=== PATIENT | female | born 1980 | race Caucasian/White ===

== ENCOUNTER 2016-06-07 09:57 | Emergency (ER) | payer OTHER ==
--- OUTSIDE RECORDS SUMMARY | 2016-06-07 10:12 | XMS REPORT | Continuity of Care Document ---
:1980 Author Organization [facility] ([facility]) Address [address] [place] [address] Phone [phone] Care Team Providers Name Role Phone Alyse Downing Primary Care Provider [phone] Source Comments This disclosure is being made pursuant to the Care Everywhere program, applicable federal and state laws, and may not contain all informaitonavailable regarding this patient.[facility] ([facility]) Active Allergies and Adverse Reactions No Active Allergies Current Medications Prescription Sig. Disp. Refills Start Date End Date Status ibuprofen (MOTRIN) 800 take 800 mg by Active mg tablet mouth 2 times daily. cyclobenzaprine take 10 mg by mouth Active (FLEXERIL) 10 mg tablet daily. HYDROcodone-acetaminophe Take 1-2 Tabs by 20 Tab 0 04/27/2010 Active n (VICODIN) 5-500 mg per mouth every 4 hours tablet as needed for Pain. Indications: Pain ibuprofen (MOTRIN) 800 Take 1 Tab by mouth 25 Tab 0 04/27/2010 Active mg tablet every 6 hours as needed for Pain. Indications: Pain HYDROcodone-acetaminophe Take 1-2 Tabs by 35 Tab 0 06/01/2010 Active n (LORTAB) 5-500 mg per mouth. Every 4-6 tablet hrs PRN maximum 8 tabs/24 hours. Indications: Pain ibuprofen (MOTRIN) 800 Take 1 Tab by mouth 25 Tab 0 06/01/2010 Active mg tablet every 6 hours as needed. maximum 4 tabs/24 hours Indications: Pain chlorhexidine (PERIDEX) Take 10-15 mL by 473 mL 2 06/01/2010 Active 0.12 % oral rinse mouth 2 times daily. Swish and spit NPO 1/2 hour. Indications: Mouth Infection Prevention amoxicillin (AMOXIL) 500 Take 1 Cap by mouth 21 Cap 0 06/01/2010 Active mg capsule 3 times daily. 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 Pulse 91 06/01/2010 2:49 PM PRACTICE ARCHITECT Temperature - - Respiratory Rate - - Height - - Weight 89.998 kg (198 lb 6.6 oz) 08/11/2006 11:45 AM CDT Body Mass Index - - Oxygen Saturation 97% 06/01/2010 2:49 PM PRACTICE ARCHITECT Plan of Care Health Maintenance Due Date Last Done Comments Hepatitis B Vaccine (1 of 3 1978 - Primary Series) Tdap Vaccine 1989 Lipid Disorder Screening 1996 MMR Vaccine 1996 Td Vaccine 1996 Cervical Cancer Screening 08/11/2009 08/11/2006, Additional history exists 02/26/2006, 02/26/2006 Influenza Vaccine: Seasonal 10/30/2015 (#1) Results from Last 3 Months Not on file
[2016-06-07] MEDS ORDERED: KETOROLAC TROMETHAMINE 60 MG/2 ML VIAL IM ONE ×2 (10:15→10:25)
--- NOTE | 2016-06-07 10:37 | ERNOTE ---
Upper Extremity HPI - Narrative Date of Service: 06/07/16 - General Extremities Pain Location: arm: left, forearm: left, wrist: left Time Seen by Provider: 06/07/16 10:04 Source: patient Exam Limitations: no limitations - Immun/Allergies/Home Medications Immunizations: IMMUNIZATION HX Immunizations Up to Date Yes History of Influenza Vaccine No Hx Pneumococcal Vaccination No Allergies/Adverse Reactions: Allergies Allergy/AdvReac Type Severity Reaction Status Date / Time No Known Allergies Allergy Verified 06/07/16 10:05 Home Medications: HOME MEDICATIONS ALPRAZolam [Xanax] 0.25 mg PO TID PRN #30 tab 11/27/15 [Last Taken Unknown] Sertraline HCl [Zoloft] 25 mg PO DAILY #30 tablet 11/27/15 [Last Taken Unknown] Hydrocodone/Acetaminophen [Hydrocodon-Acetaminoph 7.5-325] 1 each PO TID PRN # 10 tablet 06/07/16 [Last Taken Unknown] - History of Present Illness Narrative: 36-year-old female presenting to the emergency room after a fall at home. States she was walking out of the bathroom when she fell landing backwards putting out her left hand to catch herself and landed on it. Patient states she has pain in her left hand last left wrist and left arm. Patient also states that she has had surgery to that wrist with pinning. Date (Duration): 06/07/16 Occurred: just prior to arrival Location of Incident: home Severity: moderate Method of Injury: Reports: fell Reason for Fall: Reports: slipped Loss of Consciousness: Reports: no loss of consciousness Modifying Factors - (Improves): Reports: immobilization Modifying Factors - (Worsens): Reports: movement Associated Symptoms: Reports: weakness. Denies: tingling, numbness distally, loss of feeling - decreased ROM Other Injuries: Reports: none Review of Systems - Review of Systems Constitutional: Present: no symptoms reported EYE: Present: no symptoms reported ENT: Present: no symptoms reported Respiratory: Present: no symptoms reported Cardiology: Present: no symptoms reported Gastrointestinal/Abdominal: Present: no symptoms reported Genitourinary: Present: no symptoms reported Musculoskeletal: Present: See HPI, joint pain. Absent: joint swelling Skin: Present: no symptoms reported Neurological: Present: no symptoms reported Endocrine: Present: no symptoms reported Hematologic/Lymphatic: Present: no symptoms reported Psych: Present: no symptoms reported - Patient's Past Medical History Patient History - Medical: Anxiety, Seizures Patient History - Cardiac/Respiratory: No pertinent hx Patient History - Cancer: No Hx of Cancer Patient History - Surgical Procedures: Hysterectomy, Tubal Ligation, Other Additional Info: States she has had pins put in her left wrist Patient History - Other: None - Family History Mother Family History - Medical: , Diabetes Type 2 Family History - Cardiac/Respiratory: Coronary Heart Disease, CVA/Stroke Father Family History - Medical: Diabetes Type 2 Family History - Cardiac/Respiratory: Coronary Heart Disease, CVA/Stroke Grandmother-Maternal Family History - Medical: , No pertinent hx Family History - Cardiac/Respiratory: No pertinent hx Grandmother-Paternal Family History - Medical: , No pertinent hx Family History - Cardiac/Respiratory: Coronary Heart Disease Uncle Family History - Medical: Diabetes Type 2 Family History - Cardiac/Respiratory: Coronary Heart Disease - Social History Living Situations: home Abuse History: No History of abuse Psych History: Current tx/ever been on anti-depressants or anti-anxiety meds Alcohol Use: none Drug Use: none - Immunizations Immunizations Up to Date: Yes Hx Pneumococcal Vaccination: No History of Influenza Vaccine: No Physical Exam - Physical Exam General Appearance: Present: wd/wn, mild distress Eye Exam: Normal inspection: bilateral Ears, Nose, Throat: Present: normal ENT inspection Neck: Present: normal inspection Respiratory: Present: no respiratory distress Cardiovascular/Chest: Present: regular rate, rhythm Gastrointestinal/Abdominal: Present: normal bowel sounds Back Exam: Present: normal inspection Extremity Exam: Present: normal except -, decreased range of motion - left arm/ wrist. Absent: joint redness, joint swelling, extremity edema Neurological Exam: Present: alert, oriented Skin Exam: Present: normal color Lymphatic Exam: Present: no adenopathy ED Progress - Vital Signs Patient's Vital Signs:: I have reviewed the patient's vital signs. Vital Signs: Vital Signs 06/07/16 10:01 Temperature 36.3 C L Pulse Rate 89 Respiratory 12 Rate Blood Pressure 129/81 O2 Sat by Pulse 97 Oximetry - X-Ray X-Ray #1 X-Ray: wrist Interpretation: Reviewed by me X-ray Comments: No definable fracture lucency or cortical discontinuity. Likely an old fracture deformity of the distal radial metaphysis, grossly stable. There is a well-corticated ossific fragment seen distal to the ulna, also stable suggestive of an old fracture. Joint spaces are in gross normal alignment without subluxation or dislocation. Mild soft tissue swelling noted throughout the wrist. IMPRESSION: 1. No acute osseous finding. 2. Stable sequela of likely previous injury of the distal radius and ulna. 3. Soft tissue swelling as above. Electronically signed by Rebeca Sunshine M.D.. X-Ray #2 X-Ray: forearm Interpretation: Reviewed by me X-ray Comments: Forearm 2 View LT * No definable fracture lucency or cortical discontinuity. Joint spaces are grossly unremarkable, as visualized. On the lateral image of the forearm there is slight elevation of the anterior fat pad at the left elbow. Mild soft tissue prominence noted at the dorsal aspect of the mid to proximal forearm. IMPRESSION: 1. No definite acute fracture suggested. 2. Elevation of the anterior fat pad at the left elbow. Correlate clinically for pain/injury to the elbow. Consider dedicated images of the left elbow. Electronically signed by Rebeca Sunshine M.D.. X-Ray #3 X-Ray: elbow Interpretation: Reviewed by me X-ray Comments: Elbow Complete Min 3 View LT * No definable fracture lucency or cortical discontinuity. Joint spaces are in gross normal alignment without subluxation or dislocation. No significant elevation of the anterior fat pad. Soft tissues are grossly normal. IMPRESSION: No acute findings. Electronically signed by Rebeca Sunshine M.D.. X-Ray #4 X-Ray: shoulder Interpretation: Reviewed by wi X-ray Comments: Shoulder 3 or More Views LT * No definable fracture lucency or cortical discontinuity. Joint spaces are in gross normal alignment without subluxation or dislocation. Minimal prominence (4.6 mm) of the acromioclavicular joint could represent acromioclavicular joint separation. Soft tissues are grossly normal. Visualized portions of the chest grossly unremarkable. IMPRESSION: 1. No definable fracture or dislocation. 2. Minimal widening of the acromioclavicular joint. Consider acromioclavicular joint separation. Electronically signed by Rebeca Sunshine M.D.. 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 Negative for narcotic abuse at this time. Departure Clinical Impression: Acromioclavicular (AC) joint injury Qualifiers: Encounter type: initial encounter Laterality: left Qualified Code(s): S49.92XA - Unspecified injury of left shoulder and upper arm, initial encounter - Departure Disposition: Home Follow Up Needed Condition: Stable Instructions: Acromioclavicular Separation With [facility] Additional Instructions: continue to take her home medications and when necessary pain medications as needed. Follow up with her primary care physician within the next 3 days. Return to the ER if symptoms worsen or have any numbness tingling or discoloration of the left arm. Referrals: Les Aguayo DO [Primary Care Provider] - Prescriptions: Hydrocodone/Acetaminophen [Hydrocodon-Acetaminoph 7.5-325] 1 each PO TID PRN # 10 tablet PRN Reason: Pain
[2016-06-07 11:51] VITALS: BP 132/81
== END 2016-06-07 12:20 | disposition home or self-care (01) ==
LOC: ER 09:57
DX: S49.92XA Unspecified injury of left shoulder and upper arm, initial encounter (principal); F41.9 Anxiety disorder, unspecified; W01.0XXA Fall on same level from slipping, tripping and stumbling without subsequent striking against object, initial encounter; Y92.002 Bathroom of unspecified non-institutional (private) residence as the place of occurrence of the external cause

== ENCOUNTER 2016-07-23 09:23 | Emergency (ER) | payer OTHER ==
[2016-07-23] MEDS ORDERED: KETOROLAC TROMETHAMINE 60 MG/2 ML VIAL IM ONE ×2 (10:08→10:12)
--- NOTE | 2016-07-23 10:13 | ERNOTE ---
Upper Extremity HPI - Narrative Date of Service: 07/23/16 - General Extremities Pain Location: shoulder: left, other: left - scapula Time Seen by Provider: 07/23/16 10:03 Source: patient, family, RN notes reviewed Exam Limitations: no limitations - Immun/Allergies/Home Medications Immunizations: IMMUNIZATION HX Immunizations Up to Date Yes History of Influenza Vaccine No Hx Pneumococcal Vaccination No Allergies/Adverse Reactions: Allergies Allergy/AdvReac Type Severity Reaction Status Date / Time No Known Allergies Allergy Verified 07/23/16 09:30 Home Medications: HOME MEDICATIONS ALPRAZolam [Xanax] 0.25 mg PO TID PRN #30 tab 11/27/15 [Last Taken Unknown] Sertraline HCl [Zoloft] 25 mg PO DAILY #30 tablet 11/27/15 [Last Taken Unknown] oxyCODONE HCL/ACETAMINOPHEN [Oxycodone-Acetaminophen 5-325] 1 each PO Q6H PRN # 12 tablet 07/23/16 [Last Taken Unknown] - History of Present Illness Narrative: 36 y/o female ambulatory to the ED for pain in the left posterior shoulder/ scapula region. She was reaching overhead while working on her ceiling fan when she heard a "pop" last evening. This was followed by immediate pain. She has not taken anything for pain. She fell last month and injured the shoulder. She began having scapula pain at that time as well. Her shoulder xray showed mild widening of the AC joint. She missed her follow up appointment with her PCP, but her pain had improved anyway. Occurred: yesterday Location of Incident: home Modifying Factors - (Improves): Reports: immobilization, rest Modifying Factors - (Worsens): Reports: movement Associated Symptoms: Denies: tingling, weakness, numbness distally Other Injuries: Reports: none Prior Treament: Reports: recently seen, treated by physician, similar symptoms before Review of Systems - Review of Systems Constitutional: Absent: recent illness, fever EYE: Present: no symptoms reported ENT: Present: no symptoms reported Respiratory: Absent: shortness of breath, cough Cardiology: Absent: chest pain, syncope Gastrointestinal/Abdominal: Absent: vomiting, diarrhea Genitourinary: Present: no symptoms reported Musculoskeletal: Present: muscle pain, joint pain. Absent: back pain, neck pain , joint swelling Skin: Absent: lesions, lumps, change in color Neurological: Absent: weakness, numbness, tingling Endocrine: Present: no symptoms reported Hematologic/Lymphatic: Present: no symptoms reported Psych: Present: no symptoms reported - Patient's Past Medical History Patient History - Medical: Anxiety, Seizures Patient History - Cardiac/Respiratory: No pertinent hx Patient History - Cancer: No Hx of Cancer Patient History - Surgical Procedures: Hysterectomy, Tubal Ligation, Other Patient History - Other: None - Family History Mother Family History - Medical: , Diabetes Type 2 Family History - Cardiac/Respiratory: Coronary Heart Disease, CVA/Stroke Father Family History - Medical: Diabetes Type 2 Family History - Cardiac/Respiratory: Coronary Heart Disease, CVA/Stroke Grandmother-Maternal Family History - Medical: , No pertinent hx Family History - Cardiac/Respiratory: No pertinent hx Grandmother-Paternal Family History - Medical: , No pertinent hx Family History - Cardiac/Respiratory: Coronary Heart Disease Uncle Family History - Medical: Diabetes Type 2 Family History - Cardiac/Respiratory: Coronary Heart Disease - Social History Living Situations: home Abuse History: No History of abuse Psych History: Current tx/ever been on anti-depressants or anti-anxiety meds Smoking Status: Current every day smoker Alcohol Use: none Drug Use: none - Immunizations Immunizations Up to Date: Yes Hx Pneumococcal Vaccination: No History of Influenza Vaccine: No Physical Exam - Physical Exam General Appearance: Present: wd/wn, alert, other - appears somewhat uncomfortable Neck: Present: normal inspection, nontender, supple, full range of motion Respiratory: Present: no respiratory distress, no accessory muscle use Cardiovascular/Chest: Present: normal peripheral pulses Peripheral Pulses: N=norm/S=strong/W=weak/B=bound/A=absent: Radial (R): Strong, Radial (L): Strong Back Exam: Present: normal inspection, no vertebral tenderness Extremity Exam: Present: normal inspection, no edema, decreased range of motion - left shoulder. Absent: bony tenderness, extremity edema Neurological Exam: Present: alert, oriented, no motor/sensory deficits, other - flat affect. Absent: normal mood/affect Skin Exam: Present: normal color, warm/dry ED Progress - Vital Signs Patient's Vital Signs:: I have reviewed the patient's vital signs. Vital Signs: Vital Signs 07/23/16 09:25 Temperature 36.0 C L Pulse Rate 75 Respiratory 12 Rate Blood Pressure 136/89 O2 Sat by Pulse 97 Oximetry - X-Ray X-Ray #1 X-Ray: Scapula Interpretation: Reviewed by me X-ray Comments: TECHNIQUE: 3 images of the left scapula. COMPARISONS: Previous study of the left shoulder from 06/07/2016 Scapula LT * No definite definable fracture lucency or cortical discontinuity. Joint spaces are grossly unremarkable as visualized in the left shoulder. Somewhat superior position of the humeral head on the lateral view of scapula most likely projectional artifact. Visualized portions of the chest unremarkable. IMPRESSION: 1. No definite acute osseous finding. Electronically signed by Rebeca Sunshine M.D.. - Progress/Reassessment Chief Complaint: Shoulder Injury/Pain Progress:: Improved Departure Clinical Impression: Acromioclavicular (AC) joint injury Qualifiers: Encounter type: subsequent encounter Laterality: left Qualified Code(s): S49.92XD - Unspecified injury of left shoulder and upper arm, subsequent encounter Shoulder pain, left Qualifiers: Chronicity: acute Qualified Code(s): M25.512 - Pain in left shoulder - Departure Disposition: Home Follow Up Needed Condition: Stable Instructions: Shoulder Separation Additional Instructions: Wear sling as needed and take ibuprofen as directed Follow up with Dr. Aguayo or orthopedics Referrals: Les Aguayo DO [Primary Care Provider] - Dipesh Arellano MD [Staff Physician] - Prescriptions: oxyCODONE HCL/ACETAMINOPHEN [Oxycodone-Acetaminophen 5-325] 1 each PO Q6H PRN # 12 tablet PRN Reason: Pain
--- OUTSIDE RECORDS SUMMARY | 2016-07-23 10:14 | XMS REPORT | Continuity of Care Document ---
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
[2016-07-23 10:20] VITALS: BP 113/76
[2016-07-23] MEDS ORDERED: ONDANSETRON 4 MG TAB.RAPDIS PO ONE (10:43)
[2016-07-23] MEDS ORDERED: ONDANSETRON 4 MG TAB.RAPDIS ONE (10:44)
== END 2016-07-23 11:12 | disposition home or self-care (01) ==
LOC: ER 09:23
DX: S49.92XD Unspecified injury of left shoulder and upper arm, subsequent encounter (principal); M25.512 Pain in left shoulder

== ENCOUNTER 2016-09-12 12:31 | Emergency (ER) | payer OTHER ==
[2016-09-12 12:47] VITALS: BP 125/50
[2016-09-12] MEDS ORDERED: IBUPROFEN 400 MG TABLET PO ONE (12:58)
[2016-09-12] MEDS ORDERED: IBUPROFEN 400 MG TABLET ONE (12:59)
[2016-09-12] MEDS ORDERED: DIPHTH,PERTUSS(ACELL),TET VAC 0.5 ML VIAL IM ONE ×3 (13:09→13:13)
--- NOTE | 2016-09-12 13:09 | ERNOTE ---
Lower Extremity HPI - Narrative Date of Service: 09/12/16 - General Lower Extremities Pain: foot: left Time Seen by Provider: 09/12/16 12:57 Source: patient Exam Limitations: no limitations - Immun/Allergies/Home Medications Immunizations: IMMUNIZATION HX Immunizations Up to Date Yes History of Influenza Vaccine No Hx Pneumococcal Vaccination No Allergies/Adverse Reactions: Allergies Allergy/AdvReac Type Severity Reaction Status Date / Time No Known Allergies Allergy Verified 09/12/16 12:47 Home Medications: HOME MEDICATIONS ALPRAZolam [Xanax] 0.25 mg PO TID PRN #30 tab 11/27/15 [Last Taken Unknown] Sertraline HCl [Zoloft] 25 mg PO DAILY #30 tablet 11/27/15 [Last Taken Unknown] HYDROcodone/ACETAMINOPHEN [Banner 5-325] 1 tab PO Q8H PRN #10 tab 09/12/16 [Last Taken Unknown] - History of Present Illness Narrative: Patient presents to the ED for a foot injury. She relates that a 4X4 she was cutting fell directly on it. No other injuries. Toes tingle. No ankle pain. Pain dorsum of foor. Worse with movement and palpation. Pain can be severe with movement. Occurred: just prior to arrival Method of Injury: Reports: direct blow Loss of Consciousness: Reports: no loss of consciousness Modifying Factors - (Improves): Reports: rest Modifying Factors - (Worsens): Reports: movement Associated Symptoms: Reports: none Other Injuries: Reports: none Subsequent Symptoms: Reports: numbness Prior Treament: Denies: recently seen Review of Systems - Review of Systems Constitutional: Absent: fever Respiratory: Absent: shortness of breath Cardiology: Absent: chest pain Musculoskeletal: Present: See HPI - Patient's Past Medical History Patient History - Medical: Anxiety, Seizures Patient History - Cardiac/Respiratory: Myocardial Infarction Patient History - Cancer: No Hx of Cancer Patient History - Surgical Procedures: Hysterectomy, Tubal Ligation, Other Patient History - Other: None LMP (females 10-50): other - Family History Mother Family History - Medical: , Diabetes Type 2 Family History - Cardiac/Respiratory: Coronary Heart Disease, CVA/Stroke Father Family History - Medical: Diabetes Type 2 Family History - Cardiac/Respiratory: Coronary Heart Disease, CVA/Stroke Grandmother-Maternal Family History - Medical: , No pertinent hx Family History - Cardiac/Respiratory: No pertinent hx Grandmother-Paternal Family History - Medical: , No pertinent hx Family History - Cardiac/Respiratory: Coronary Heart Disease Uncle Family History - Medical: Diabetes Type 2 Family History - Cardiac/Respiratory: Coronary Heart Disease - Social History Living Situations: home Abuse History: No History of abuse Psych History: Hx of Anxiety, Current tx/ever been on anti-depressants or anti- anxiety meds Alcohol Use: none Drug Use: none - Immunizations Immunizations Up to Date: Yes Hx Pneumococcal Vaccination: No History of Influenza Vaccine: No Physical Exam - Physical Exam General Appearance: Present: alert, no apparent distress Neck: Present: other - trachea midline Cardiovascular/Chest: Present: normal peripheral pulses Extremity Exam: Present: other - Swalling and tenderness dorsum of left foot over 4,5th metacarpal area. Mild swelling and abrasions. No lacearation. No evidnece of compartment syndrome. No vascular deficit. No ankle or proximal tendenress. No suggestion of tendon injury. Neurological Exam: Present: other - Sensation LT left foot intact. Pain limited by exam but no clear focal acute motor deficit. Skin Exam: Absent: skin rash ED Progress - Vital Signs Patient's Vital Signs:: I have reviewed the patient's vital signs. Vital Signs: Vital Signs 09/12/16 12:44 Temperature 36.7 C Pulse Rate 92 Respiratory 16 Rate Blood Pressure 125/50 O2 Sat by Pulse 97 Oximetry - X-Ray X-Ray #1 X-Ray: foot X-ray Comments: I reviewed the official radiology report, no fracture. - Progress/Reassessment Chief Complaint: Foot Injury/Pain Progress Note-Subjective: 09/12/16 13:27 No fracture. Cannot r/o occult fracture. dT UTD. Post op shoe and crutches with re-check in 5 days to re-assess for possible repeat x-ray. She understands. I discussed warning signs and reasons to return as well as the need for close f/u. Departure Clinical Impression: Musculoskeletal pain - Departure Disposition: Home self-care Condition: Stable Instructions: Musculoskeletal Pain Additional Instructions: Rest. Ice. Elevation. Fluids. Follow-up with your doctor in 5 days for a re- check. Return for increased pain, numbness, tingling, weakness, signs of infection or if your condition worsens or changes in any way. Referrals: Les Aguayo DO [Primary Care Provider] - Prescriptions: HYDROcodone/ACETAMINOPHEN [Banner 5-325] 1 tab PO Q8H PRN #10 tab PRN Reason: Pain
--- OUTSIDE RECORDS SUMMARY | 2016-09-12 13:19 | XMS REPORT | Continuity of Care Document ---
:1980 Author Organization [facility] ([facility]) Address [address] [place] [address] Phone [phone] Care Team Providers Name Role Phone Alyse Downing Primary Care Provider [phone] Source Comments This disclosure is being made pursuant to the Care Everywhere program, applicable federal and state laws, and may not contain all informaitonavailable regarding this patient.[facility] ([facility]) Active Allergies and Adverse Reactions No [...] Taken Blood Pressure 123/75 06/01/2010 2:49 PM [employer]IOR [employer]AL [employer] Pulse 91 06/01/2010 2:49 PM 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
== END 2016-09-12 13:35 | disposition home or self-care (01) ==
LOC: ER 12:31
DX: M79.672 Pain in left foot (principal); W20.8XXA Other cause of strike by thrown, projected or falling object, initial encounter; Z23 Encounter for immunization